=== PATIENT | female | born 1975 | race Caucasian/White ===

== ENCOUNTER 2019-06-26 08:43 | Outpatient (REF) | payer BC, SELFPAY ==
[2019-06-26 21:16] LABS: ALT 20 U/L (14-59); AST 13 U/L (15-37); Alkaline Phosphatase 54 U/L (46-116); BUN 14 mg/dL (7-18); Bilirubin, Total 0.5 mg/dL (0.2-1.0); CREATININE 0.83 mg/dL (0.55-1.02); Calculated LDL 150 mg/dL; Chloride 102 mmol/L (98-107); Cholesterol 219 mg/dL (50-200); Glucose 98 mg/dL (70-100); HDL Cholesterol 54 mg/dL (40-60); Sodium 138 mmol/L (136-145); Triglyceride 77 mg/dL (30-150)
[2019-06-26 21:44] LABS: Hemoglobin A1C 5.6 % (4.5-6.2)
== END 2019-06-26 09:03 ==
LOC: NCHCN 08:43
PROVIDERS: PCP Family Medicine; Visit Provider Family Medicine
DX: Z00.00 Encounter for general adult medical examination without abnormal findings (principal); R73.09 Other abnormal glucose; E66.3 Overweight
CPT/HCPCS: 80053; 80061; 83036

== ENCOUNTER 2021-01-07 01:14 | Emergency (ER) | payer BC, SELFPAY ==
[2021-01-07 01:19] VITALS: BP 171/101; PULSE 92; RESP 18; TEMP 36.7; O2SAT 100
[2021-01-07 01:29] VITALS: BP 159/101
--- NOTE | 2021-01-07 01:41 | W.ED.GENAD ---
Discharge Plan Disposition Patient Disposition: HOME Condition: Stable Discharge Details Clinical Impression: Abnormal uterine bleeding Primary Care Provider: Nahomy Busby ED Provider: Curt Martinez Home Meds and New Rx's Prescriptions: No Action No Known Home Meds RF: 0 Discharge Instructions Additional Instructions: follow up with your women's wellness provider this week you can take 600mg ibuprofen every 6 hours for pain as needed if significant increase in pain, bleeding, or you feeling short of breath or chest discomfort return to the emergency department Medical Decision Making 45 yo female who denies chronic medical problems comes in with frequent vaginal bleeding since yesterday at 2am. She did have clots initially but that has resolved and had lower abdominal pain as well but that has improved and she has no tenderness on abdominal exam now. No fevers or vomit. Denies chance of preganncy as she is in same sex relationship. She is hemodynamically stable on exam. I suspect fibroids vs dysfunctional uterine bleeding given well appearance, unfortunately we do not have u/s here tonight but at present do not feel she requires emergent imaging. Will obtain cbc and also perform speculum exam. pts cbc reassuring, no anemia and on speculum exam has small amount of blood coming from os, no clots or abnormalities noted of vaginal canal. She remains stable and given stable vitals with reassuring exam and cbc feel she can be d/c'd with f/u with her obgyn provider which she says is at [facility] and wants to continue to see them. Advised if worsening pain or bleeding to return to the emergency department. Continues to have no abdominal pain so doubt entities such as ovarian torsion Differential Diagnosis Differential Diagnosis: dysfunctional uterine bleeding, endometriosis, fibroids, Lab Data Lab results reviewed: Yes I reviewed the patient's lab results. HPI General Mode of arrival: ambulatory. Date/Time Provider Initiated Documentation: 01/07/21 01:15. Limitations to Documentation: no limitations. Information obtained by: patient. History of Present Illness 45 year old F presents to the emergency department with the chief complaint of vaginal bleeding, described as moderate, and it has been constant. No relieving factors improve symptom(s), No exacerbating factors reported . 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 Review of Systems All systems reviewed & are unremarkable except as noted in HPI and below Constitutional Constitutional: Denies chills, Denies fever(s) and Denies weakness Cardiovascular Cardiovascular: Denies chest pain and Denies dyspnea Respiratory Respiratory: Denies cough and Denies dyspnea Gastrointestinal Gastrointestinal: Denies nausea and Denies vomiting Genitourinary Genitourinary: Denies dysuria Neurologic Neurologic: Denies weakness PFSH Social History Smoking/Tobacco Use Status: Never Smoking risk assessment performed?: Yes Alcohol Intake: current Alcohol Intake frequency: a few times a week Alcohol type: beer, wine and hard liquor Drug use: Never Substance use type: does not use Do you feel safe at home: Yes Do you feel safe in your relationship?: Yes Exam Const General: no acute distress Orientation: alert HENMT Head: normal to inspection Ears: external ears normal General nose exam: external nose normal Mouth: moist mucous membranes Eyes General: appearance normal, both eyes and all related structures Neck Neck: normal visual inspection Resp Effort & Inspection: normal respiratory effort and able to speak in complete sentences Cardio Rate: regular rate GI Palpation: soft and nontender Skin General skin exam: no rashes or lesions noted Neuro General: patient alert and patient oriented x3 Extrem General: normal to inspection Psych Mental Status: mental status grossly normal Course Vital Signs Vital signs: Vital Signs Temperature 36.7 C 01/07/21 01:19 Pulse 92 H 01/07/21 01:19 Respiratory Rate 18 01/07/21 01:19 Blood Pressure 171/101 H 01/07/21 01:19 Pulse Oximetry 100 01/07/21 01:19 Temperature 36.7 C 01/07/21 01:19 Temperature Source Skin 01/07/21 01:19 Pulse 92 H 01/07/21 01:19 Respiratory Rate 18 01/07/21 01:19 Respiratory Effort Non-Labored 01/07/21 01:24 Blood Pressure 159/101 H 01/07/21 01:29 Pulse Oximetry 100 01/07/21 01:19 Pain Level 7 01/07/21 01:19
[2021-01-07 01:47] LABS: Abs Immature Grans 0.01 10^3/uL (0.0-0.06); Absolute Basophil Count 0.04 10^3/uL (0.0-0.2); Absolute Eosinophil Count 0.17 10^3/uL (0.0-0.7); Absolute Monocyte Count 0.43 10^3/uL (0.1-0.8); Absolute Neutrophil Count 3.73 10^3/uL (1.2-6.7); Basophils % 0.7; Eosinophils % 2.9; HCT 38.8 % (36.0-46.0); HGB 12.5 g/dL (11.2-15.7); Immature Grans % 0.2; Lymphocytes % 25.5; MCH 29.6 pg (27.0-33.0); MCHC 32.2 % (32.0-36.0); MCV 91.7 fL (80-95); Monocytes % 7.3; Neutrophils % 63.4; Nucleated RBC 0 %; Platelet Count 247 10^3/uL (130-400); RBC 4.23 10^6/uL (3.93-5.22); RDW-SD 43.4 fL; WBC 5.88 10^3/uL (4.4-10.8)
[2021-01-07 02:02] LABS: PTT Activated 23.9 sec (21.0-27.5); Prothrombin Time 9.8 sec (9.3-11.0)
[2021-01-07 02:21] LABS: HCG Qual (Serum) Negative
[2021-01-07 02:26] VITALS: BP 125/79; PULSE 73; RESP 16; O2SAT 100
== END 2021-01-07 02:30 | disposition home or self-care (01) ==
PROVIDERS: Emergency Provider Emergency Medicine; PCP Family Medicine
DX: N93.8 Other specified abnormal uterine and vaginal bleeding (principal)
CPT/HCPCS: 36415; 81025; 86850; 86900; 86901; 99284; 84703; 85025; 85610; 85730

== ENCOUNTER 2021-01-26 09:39 | Outpatient (REF) | payer BC, SELFPAY ==
--- NOTE | 2021-01-26 08:45 | ENDOMET_PTH ---
PATIENT: Magda Sellers LOC: [facility] U#:[id number] AGE/SX: 45/F ROOM: RE01/26/[address]: Martha Pérez DO : 1975 BED: DIS: 01/26/2021 SPEC #: [id number] RECD: 01/26/21 12:25 STATUS: FELIX REQ #: [id number] DEWAYNE: 01/26/21 08:[address]: Martha Pérez DEPT: Surgical Specimen RECD BY: Ameena Hamilton ENTERED: 01/26/21 12:26 SP TYPE: Endomet OTHR DR: Nahomy Busby Tissues: 1 - ENDOMETRIUM BX/JORDIN Procedures: GROSS AND MICRO LEVEL 4 Comments: [id number]
== END 2021-01-26 09:40 | disposition home or self-care (01) ==
LOC: LBN 09:39
PROVIDERS: PCP Family Medicine; Visit Provider Obstetrics & Gynecology
DX: N85.01 Benign endometrial hyperplasia (principal); N93.9 Abnormal uterine and vaginal bleeding, unspecified
CPT/HCPCS: 88305

== ENCOUNTER 2022-08-03 09:45 | Outpatient (REF) | payer BC, SELFPAY ==
--- NOTE | 2022-08-03 09:15 | ENDOMET_PTH ---
PATIENT: Magda Sellers LOC: [facility] U#:[id number] AGE/SX: 46/F ROOM: RE08/03/[address]: Martha Pérez DO : 1975 BED: DIS: 08/03/2022 SPEC #: [id number] RECD: 08/03/22 12:35 STATUS: SOUFederico REQ #: [id number] DEWAYNE: 08/03/22 09:[address]: Martha Pérez DEPT: Surgical Specimen RECD BY: Ameena Hamilton ENTERED: 08/03/22 12:35 SP TYPE: Endomet OTHR DR: Nahomy Busby Tissues: 1 - ENDOMETRIUM BX/[place] Procedures: GROSS AND MICRO LEVEL 4 Comments: [id number]
--- OUTSIDE RECORDS SUMMARY | 2022-08-03 09:53 | XMS_ITS | Encounter Summary ---
:[address] [facility] Address [address] [place] [address] Care Team Providers Name Role Phone Salty Busby MD Primary Care Provider [phone] Encounter Details Date Type Department Care Team Description 07/20/2021 Lab Requisition [facility] Outr Resulting Lab, Pathology & Laboratory Provider [facility] [address] [id number] Social History Tobacco Use Types Packs/Day Years Used Date Never Assessed Sex Assigned at Date Recorded Not on file documented as of this encounter Plan of Treatment Not on filedocumented as of this encounter Procedures Procedure Name Priority Date/Time Associated Comments Diagnosis QUANTIFERON MITOGEN Today 07/19/2021 15:59 (PERFORMABLE) EDT QUANTIFERON TB2 Today 07/19/2021 15:59 (PERFORMABLE) EDT QUANTIFERON TB1 Today 07/19/2021 15:59 (PERFORMABLE) EDT QUANTIFERON NIL Today 07/19/2021 15:59 (PERFORMABLE) EDT QUANTIFERON Today 07/19/2021 15:59 Results for this INTERPRETATION EDT procedure are in (PERFORMABLE) the results section. QUANTIFERON TB GOLD Routine 07/19/2021 15:59 Resu lts for this PLUS EDT procedure are i n the results section. documented in this encounter Results QUANTIFERON INTERPRETATION (PERFORMABLE) (07/19/2021 15:59 EDT) Quantiferon NegativeComment: No Negative [facility] Interpretation interferon-gamma [facility] response to M. SERVICES tuberculosis antigens was detected. ??Infection with M. tuberculosis is unlikely. A single negative result does not exclude infection with M. tuberculosis. ??In patients at high risk for M. tuberculosis infection, a second test should be considered. TB1 Ag minus Nil 0.00 IU/ml [facility] TB2 Ag minus Nil 0.00 IU/mL [facility] Specimen Blood - Venous blood (substance) Narrative [facility] - 07/21/2021 13:34 EDT Results were obtained with the [employer] QuantiFERON-TB Gold Plus CLIA. New platform in use 07/05/2021 Performing Organization Address City/State/ZIP Code Phon e Number [facility] [address] [place] [address] SERVICES QUANTIFERON MITOGEN (PERFORMABLE) (07/19/2021 15:59 EDT) Specimen Blood - Venous blood (substance) Performing Organization Address City/State/ZIP Code Phon e Number [facility] [address] [place] [address] SERVICES QUANTIFERON TB2 (PERFORMABLE) (07/19/2021 15:59 EDT) Specimen Blood - Venous blood (substance) Performing Organization Address City/State/ZIP Code Phon e Number [facility] [address] [place] [address] SERVICES QUANTIFERON TB1 (PERFORMABLE) (07/19/2021 15:59 EDT) Specimen Blood - Venous blood (substance) Performing Organization Address City/State/ZIP Code Phon e Number [facility] [address] [place] [address] SERVICES QUANTIFERON NIL (PERFORMABLE) (07/19/2021 15:59 EDT) Specimen Blood - Venous blood (substance) Performing Organization Address City/[facility]/ZIP Code Phon e Number [facility] [address] [place] [address] SERVICES documented in this encounter Visit Diagnoses Not on filedocumented in this encounter Care Teams Cuprous Chloride Operator Relationship Specialty Start Date End Date Salty Busby MD PCP - General 01/26/21 4 [facility] [address] [place] [address] documented as of this encounter
--- OUTSIDE RECORDS SUMMARY | 2022-08-03 09:53 | XMS_ITS | Encounter Summary ---
:1975 Author Organization [facility] Address [address] [place] [address] Care Team Providers Name Role Phone Unavailable Primary Care Provider Unavailable Encounter Details Date Type Department Care Team Description 06/26/2019 Hospital Encounter [facility] - Unknown, Jana kaiser [facility] [phone] [place] [address] (Work) [place] [address] Social History Tobacco Use Types Packs/Day Years Used Date Never Assessed Sex Assigned at Date Recorded Not on file documented as of this encounter Discharge Disposition Disposition Code Departure Means Destination Home or Self Snf documented in this encounter Plan of Treatment Not on filedocumented as of this encounter Visit Diagnoses Not on filedocumented in this encounter
--- OUTSIDE RECORDS SUMMARY | 2022-08-03 09:53 | XMS_ITS | Encounter Summary ---
:1975 Author Organization [facility] Address [address] [place] [address] Care Team Providers Name Role Phone Unavailable Primary Care Provider Unavailable Encounter Details Date Type Department Care Team Description 12/10/2016 Results Only [facility] CNM [phone] [address] [facility] [place] [address] (Wo rk) Social History Tobacco Use Types Packs/Day Years Used Date Never Assessed Sex Assigned at Date Recorded Not on file documented as of this encounter Plan of Treatment Not on filedocumented as of this encounter Procedures Procedure Name Priority Date/Time Associated Diagnosis Comme nts PAP TEST- RESULT Routine 12/10/2016 0:00 EST Resu lts for this ONLY procedure are i n the results section. documented in this encounter Results PAP TEST- RESULT ONLY (12/10/2016 0:00 EST) Pathology Report: CYTOPATHOLOGY REPORT [facility] Reports generated via electronic interface contain jewel ginal data; SERVICES however they are lacking the format of the original re port. Caution should be taken when reading/interpreting unfo rmatted reports. Name: ? SARA ASIF ? Accession #: ? [id number] ? : ? 1975 (Age: 40 ) ??F ?Collect Date: ? 12/10/2016 ? Location: ? [facility] ? Receive Date: ? 12/12/19 17 ? Provider: SIERRA HALEY CNM Copy to: ? Final Report SPECIMEN ADEQUACY ? Satisfactory for Evaluation - transformation zone component present GENERAL CATEGORIZATION ? Negative for Intraepithelial Lesion or Malignan cy INTERPRETATION ? Shift in nicolasa present suggestive of bacterial vaginosis. Hormonal/Contraceptive status: None Other: It Program Auditor Clinical/Treatment Hx - None Specimen/Source: ??Pap Test, Cervix, ThinPrep Imaging System with manual evaluation Document reviewed and electronically signed by: ? WAYLON Wick(ASCP) ? Report ??Date: 12/17/2016 09:12 HPV with Pap Test ? Date Ordered: ? 12/17/2016 ? Status: ?? Signed Out ?Date Complete: ? 12/18/2016 ? By: ??Sy stem Interface ? Date Reported: ? 12/18/2016 ? Interpretation RESULT: Negative for HPV. No E6 or E7 mRNA is detected from HPV types 16,18,31,3 3,35, 39,45,51,52,56,58,59,66, and 68 by emergency technician media wilman amplification. Comments Document reviewed and electronically signed by: ? System Interface ? Report date: 12/18/2016 By the signature above, the attending physician certif ies that he/she has personally conducted a gross and/or microscopic examin ation of the described specimens and rendered or confirmed the above diagnosi s. End of Report Specimen Performing Organization Address City/State/ZIP Code Phon e Number [facility] [address] [place] [address] SERVICES documented in this encounter Visit Diagnoses Not on filedocumented in this encounter
--- OUTSIDE RECORDS SUMMARY | 2022-08-03 09:53 | XMS_ITS | Encounter Summary ---
:1975 Author Organization [facility] Address [address] [place] [address] Care Team Providers Name Role Phone Salty Busby MD Primary Care Provider [phone] Encounter Details Date Type Department Care Team Description 01/26/2021 Lab Requisition [facility] Martha Pérez Encounter for other Pathology & [address] general examination Laboratory Medicine [facility] [phone] [address] [facility] [phone] [place] [address] (Work) [phone] Social History Tobacco Use Types Packs/Day Years Used Date Never Assessed Sex Assigned at Date Recorded Not on file documented as of this encounter Plan of Treatment Not on filedocumented as of this encounter Procedures Procedure Name Priority Date/Time Associated Diagnosis Comme nts SURGICAL PATHOLOGY Today 01/26/2021 8:45 EDT Encounter for o ther Results for this general examination procedur e are in the results section. documented in this encounter Results SURGICAL PATHOLOGY (01/26/2021 8:45 EDT) Final Diagnosis A. ENDOMETRIUM, BIOPSY: [facility] - Secretory endometrium with focal breakdown. [facility] Attestation There was significant [facility] Electr onically resident/fellow CENTER signed by Denise gonzalez, involvement in the LABORATORY Sherly Bennett MD on diagnostic evaluation SERVICES 02/01/20 21 at 1530 of this case. By the signature below, the attending physician certifies that they have personally conducted a gross and/or microscopic examination of the described specimens and rendered or confirmed the above diagnosis. Clinical History Abnormal uterine [facility] bleeding [facility] Gross Description A. [facility] Received in formalin pedro d with proper patient identification (initials O, B) and endometrial bx is an aggregate of ball-cuba tissue, 1.2 x 1.0 x 0.7 cm. Entirely submitted in A1-A2. [facility] ZULY STEEL(ASCP) 01/26/2021 16:37 SER VICES Resident/Fellow: Sarah Spaulding [facility] MELISSA Kulkarni MD [facility] Performing Lab [facility] Scanned Images [facility] Specimen Tissue - Entire endometrium (body struct ure) Performing Organization Address City/State/ZIP Code Phon e Number [facility] [address] [place] [address] SERVICES documented in this encounter Visit Diagnoses Diagnosis Encounter for other general examination documented in this encounter Care Teams Staging Technician Relationship Specialty Start Date End Date Salty Busby MD PCP - General 01/26/[address] [place] [address] [phone] documented as of this encounter
--- OUTSIDE RECORDS SUMMARY | 2022-08-03 09:53 | XMS_ITS | Clinical Summary ---
:1975 Author Organization [facility] Address [address] [place] [address] Care Team Providers Name Role Phone Salty Busby MD Primary Care Provider [phone] Social History Tobacco Use Types Packs/Day Years Used Date Never Assessed Sex Assigned at Date Recorded Not on file Plan of Treatment Health Maintenance Due Date Last Done Comments Hepatitis C Screen 1975 COVID-19 Vaccine (1) 1989 Insurance Payer Benefit Plan / Subscriber ID Effective Dates Phone Addre ss Type Group [place] [id number] 2018-Present [address] [place] [address] Magda Asif Personal/Family Self 1975 [address] ([address]) [place] [address] Magda Asif Personal/Family Self 1975 [address] [place] [address] Magda Asif Personal/Family Self 1975 [address] [place] [address] Magda Asif Personal/Family Self 1975 [address] ([address]) [place] [address] Care Teams Operations Research Engineer Relationship Specialty Start Date End Date Salty Busby MD PCP - General 01/26/21 [address] [place] [address]
== END 2022-08-03 09:46 | disposition home or self-care (01) ==
LOC: LBN 09:45
PROVIDERS: PCP Family Medicine; Visit Provider Obstetrics & Gynecology
DX: N93.9 Abnormal uterine and vaginal bleeding, unspecified (principal)
CPT/HCPCS: 88305

== ENCOUNTER 2022-08-27 03:20 | Outpatient (CLI) | payer BC, SELFPAY ==
[2022-08-27 07:14] LABS: Abs Immature Grans 0.02 10^3/uL (0.0-0.06); Absolute Basophil Count 0.06 10^3/uL (0.0-0.2); Absolute Eosinophil Count 0.25 10^3/uL (0.0-0.7); Absolute Lymphocyte Count 1.35 10^3/uL (1.2-3.4); Absolute Monocyte Count 0.44 10^3/uL (0.1-0.8); Absolute Neutrophil Count 2.71 10^3/uL (1.2-6.7); Basophils % 1.2; Eosinophils % 5.2; HCT 40.8 % (36.0-46.0); HGB 12.6 g/dL (11.2-15.7); Immature Grans % 0.4; MCH 28.3 pg (27.0-33.0); MCHC 30.9 % (32.0-36.0); MCV 92 fL (80-95); MPV 10.8 fL (8.0-11.0); Monocytes % 9.1; Neutrophils % 56.1; Platelet Count 312 10^3/uL (130-400); RBC 4.45 10^6/uL (3.93-5.22); RDW 17.6 % (11.7-14.6); RDW-SD 59.2 fL; WBC 4.83 10^3/uL (4.4-10.8)
== END 2022-08-27 03:21 | disposition home or self-care (01) ==
LOC: LBO 03:20
PROVIDERS: PCP Family Medicine; Visit Provider Obstetrics & Gynecology
DX: N93.8 Other specified abnormal uterine and vaginal bleeding (principal); D25.9 Leiomyoma of uterus, unspecified; Z01.818 Encounter for other preprocedural examination; Z01.812 Encounter for preprocedural laboratory examination
CPT/HCPCS: 36415; 86850; 86900; 86901; 85025

== ENCOUNTER 2022-08-29 06:01 | Observation (INO) | payer BC, SELFPAY ==
[2022-08-29] VITALS (19 sets, daily range): BP systolic 77–135; BP diastolic 41–90; PULSE 60–87; RESP 14–26; TEMP 36.3–36.8; O2SAT 92–100; BMI 28.5
[2022-08-29 06:20] LABS: Source Nasal/Nares
[2022-08-29] MEDS: Lactated Ringers 1,000 ML 125 ML IV ×2 (06:40→17:00)
[2022-08-29 06:54] LABS: COVID-19 PCR Negative (Negative)
--- NOTE | 2022-08-29 07:25 | W.ANESPRE ---
General Info Date of Service Date Performed: 08/29/22 Height: 5 ft 7 in Weight: 82.5 kg Body Mass Index (BMI): 28.5 Surgical Procedure: Operation Date: 08/29/22 07:40 Proposed Procedure Side Surgeon p Hysterectomy Vaginal Laparoscopic Assist w/Salpingectomy,Possible CESAR,Cysto Martha DO Beto Meds Allergies and Home Medications Allergies Allergy/AdvReac Type Severity Reaction Status Date / Time No Known Allergies Allergy Verified 08/29/22 06:15 Home Medication Medication Instructions Recorded cholecalciferol (vitamin D3) 10 10 mcg PO DAILY 01/11/21 mcg (400 unit) tablet multivitamin 1 tab PO DAILY 01/11/21 norethindrone acetate 5 mg tablet 5 mg PO BID #30 tabs 08/20/22 (Aygestin) Current Visit Medications: Current Medications Generic Name Dose Route Start Last Admin Trade Name Freq PRN Reason Stop Dose Admin Ringer's Solution 1,000 mls @ 125 mls/hr 08/29/22 06:00 08/29/22 06:40 IV 09/27/22 23:59 125 mls/hr INFUSION REYNOLD Administration Cefazolin Sodium/Dextrose 2 gm in 50 mls @ 100 mls/hr 08/29/22 06:00 Ancef Duplex IVPB 09/27/22 23:59 PREOP REYNOLD IV Miscellaneous Supplies 1 each 08/29/22 06:00 Iv Access IV 09/27/22 23:59 DIRECTED REYNOLD Sodium Chloride 0 ml 08/29/22 06:00 Normal Saline Flush 10 Ml Syr IV 09/27/22 23:59 PRN PRN Sodium Chloride 0 ml 08/29/22 06:00 Normal Saline 10 Ml Vial IJ 09/27/22 23:59 DIRECTED PRN Sterile Water 0 ml 08/29/22 06:00 Water,Injection,Sterile 10 Ml Vial IJ 09/27/22 23:59 DIRECTED PRN PFSH Active Problems Active Problems: Problem Status Onset Code Abnormal uterine bleeding N93.9 Migraine G43.909 Uterine fibroid D25.9 Anemia D64.9 Surgical History Surgical History H/O wrist surgery History of lipoma Exc. left shoulder Tobacco Smoking/Tobacco Use Status: Never Alcohol Alcohol Intake: current Alcohol intake frequency: a few times a week Alcohol type: beer, wine and hard liquor Substance Use Substance use: Never Substance use type: does not use Prental History History 0 Para Hx # Term Pregnancies Multiple births Hx # Pregnancies Ectopic pregnancies AB induced Hx Number of Living Children AB spontaneous Vital Signs and Lab Results Vital Signs Most Recent Vital Signs in EMR: Most Recent Vital Signs Temp Pulse Resp BP Pulse Ox 36.7 C 81 16 135/90 100 08/29/22 06:17 08/29/22 06:17 08/29/22 06:17 08/29/22 06:17 08/29/22 06:17 Point of Care Results Point of Care Results: POC- Test(urine) Negative 08/29/22 06:51 Lab Results Blood Type / Crossmatch: Patient ABO/Rh O Positive 08/27/22 Antibody Screen NEGATIVE 08/27/22 Complete Blood Count: White Blood Count 4.83 10^3/uL (4.4-10.8) 08/27/22 07:01 Red Blood Count 4.45 10^6/uL (3.93-5.22) 08/27/22 07:01 Hemoglobin 12.6 g/dL (11.2-15.7) 08/27/22 07:01 Hematocrit 40.8 % (36.0-46.0) 08/27/22 07:01 Platelet Count 312 10^3/uL (130-400) 08/27/22 07:01 Complete Metabolic Panel: No Data to Display Liver Function Panel: No Data to Display Coagulation Panel: No Data to Display Cardiac Panel: No Data to Display Arterial Blood Gas: No Data to Display Venous Blood Gas: No Data to Display Pancreas Panel: No Data to Display Thyroid Panel: No Data to Display Infectious Disease: Coronavirus (COVID-19)(PCR) Negative (Negative) 08/29/22 06:10 Coronavirus 2019 Source Nasal/Nares 08/29/22 06:10 Blood Cultures: No Data to Display Toxicology Panel: No Data to Display Panel: No Data to Display Anesthesia Assessment and Plan Anesthesia History Personal History: No History of Anesthesia Complications Family History: No Family History of Anesthesia Complications Exercise Tolerance Exercise Tolerance: Metabolic Equivalents>4 Pertinent Negatives Pertinent Negatives: No Symptoms of GERD, No Major Cardiovascular Symptoms or Complaints, No Major Pulmonary Symptoms or Complaints and No History of CVA/TIA Cardiac & Pulmonary Exam Cardiac Exam: Normal S1/S2 Heart Sounds Pulmonary Exam: Clear Bilateral Breath Sounds Implantable Cardiac Device Does patient have a Pacemaker or an ICD?: No Airway Exam Known Difficult Airway: No Mallampati Class: 2 Mouth Opening: Normal (> 3cm) Thyromental Distance: Greater than 3 cm Neck Range of Motion: Full ROM Neck Circumference: Normal Teeth Condition: Normal Dentition ASA Classification ASA Score: ASA 2 Emergency Case?: No NPO Status NPO Status: NPO Clears >2 hours, Solids >8 hours Status Status: Negative HCG Anesthesia Plan Resuscitation Status: Full Code Anesthesia Technique: General Anesthesia Airway Planned: Endotracheal Tube Pain Management: Intrathecal Analgesia Monitors Used: Standard Monitors
[2022-08-29] MEDS: ceFAZolin 2 GM/50 ML BAG IVPB (07:40)
--- NOTE | 2022-08-29 08:26 | UTER_PTH ---
PATIENT: Magda Sellers LOC: [facility] U#:[id number] AGE/SX: 46/F ROOM: OBS.306 RE08/29/[address]: Martha Pérez DO : 1975 BED: A DIS: 08/30/2022 SPEC #: [id number] RECD: 08/29/22 12:35 STATUS: SOUFederico REQ #: [id number] DEWAYNE: 08/29/22 08:[address]: Martha Pérez DEPT: Surgical Specimen RECD BY: Ameena Hamilton ENTERED: 08/29/22 12:36 SP TYPE: UTER OTHR DR: Nahomy Busby Tissues: 1 - FALLOPIAN TUBE (OTHER) 2 - FALLOPIAN TUBE (OTHER) 3 - UTERUS W OR W/O OVARIES(NOT TUMOR/PROLAPSE) Procedures: GROSS AND MICRO LEVEL 5 Comments: [id number]
[2022-08-29] MEDS: Bupivacaine 0.5% Pres-Free 30 ML VIAL (09:59)
--- NOTE | 2022-08-29 10:17 | W.PM.OP ---
Date of service: 08/29/22 Time of Service: 10:17 Operative Note Operative Note DATE OF PROCEDURE: 08/29/22 PRE-OP DIAGNOSIS: Abnormal uterine bleeding, symptomatic uterine fibroid POST-OP DIAGNOSIS: same PROCEDURE: Laparoscopically assisted vaginal hysterectomy, bilateral salpingectomy, cystoscopy SURGEON: Martha Pérez ASSISTING SURGEON: Dayana Velasquez ANESTHESIA TYPE: Local By Surgeon, General LMA/ETT and Spinal Refer to Anesthesia Record ESTIMATED BLOOD LOSS: 100 PATHOLOGY: other (1. Right fallopian tube 2. Left fallopian tube 3. Uterus and cervix) COMPLICATIONS: None Patient was transported to: PACU Patient's condition: stable Indications: Ongoing abnormal uterine bleeding, negative endometrial sampling, symptomatic uterine fibroid. Findings: Enlarged uterus at 10 cm, 5 cm right fundal uterine fibroid. Normal-appearing ovaries. Right fallopian tube with small white papillations at and near to the fimbriated end. No other intra-abdominal, or pelvic pathology noted. Normal bladder cystoscopy with no evidence of trauma. Normally functioning ureters. Procedure Description: After full informed consent has been obtained and appropriate preoperative testing was performed, patient was taken the operating suite with an IV running where she was placed in the seated position. She had spinal anesthesia administered for postoperative pain control. She was then placed in dorsal supine position and endotracheal intubation performed for the administration of general anesthesia with ease. At this point she was placed in the modified dorsolithotomy position in [facility] and exam under anesthesia performed. Uterus is bulky and globular but freely mobile. She was then prepped and draped in the usual sterile fashion. Crockett catheter was inserted for continuous bladder drainage and a weighted speculum placed in the posterior vaginal vault for identification of the cervix. Cervix was grasped with a single-tooth tenaculum and a ZUMI uterine manipulator placed for uterine manipulation throughout the procedure. Tenaculum and speculum were then removed and attention was turned to the abdomen. After infiltration of the umbilical area with half percent Marcaine a 10 mm vertical incision was made at the umbilicus. The anterior abdominal wall was elevated with towel clips and a varies needle inserted into the abdomen. Pneumoperitoneum created with a maximum pressure of 15 mmHg of CO2 gas. At this point a bladeless 12 mm sleeve and trocar were placed into the abdomen under direct visualization. The abdomen and pelvis were inspected and found to be free of trauma. At this point the right and left lower trocar sites were infiltrated with half percent Marcaine and small, 5 mm incisions were made. Under direct visualization a right and left lower quadrant trocar site were placed. At this point the uterus was elevated and the abdomen and pelvis inspected. There were noted to be small white papillary excrescences on the right fallopian tube. For this reason fallopian tube removal will be sent separately for pathology. Ovaries appeared normal, small and involuted bilaterally. There was no evidence of other intra-abdominal or pelvic pathology. Initially attention was turned to the right fallopian tube which was elevated and cautery transected and removed through the 12 mm trocar. Similar procedure was carried out on the left fallopian tube. At this point again attention was turned to the right side of the uterus where the utero-ovarian ligament was identified cautery transected and ligated. The right round ligament was cautery transected and ligated allowing opening of the broad ligament. The anterior leaf of the broad ligament was elevated and bladder flap created. The right uterine artery and vein were identified and cauterized on the right. Similar procedure was carried out on the left utero-ovarian ligament followed by left round ligament allowing access of the left broad ligament which completed the bladder flap. The uterine vessels on the left were also cauterized for additional hemostasis. At this point all pedicles were inspected and found that hemostatic and attention was then turned to the vaginal vault. Pneumoperitoneum released. Weighted speculum was placed in the posterior vaginal vault and Juan clamps were used to grasp the anterior and posterior lips of the cervix. It was a circumferential fashion with the Bovie cautery an incision was made at the cervical vaginal interface. The posterior cul-de-sac was grasped with a Cameron and entered sharply. A longbilled weighted speculum was then placed within and the right and left uterosacral cardinal ligaments were clamped transected and suture-ligated. With meticulous sharp dissection the anterior cul-de-sac was then entered. Remainder of the uterine pedicles were clamped, transected, and suture-ligated in a systematic fashion allowing delivery of the uterus through the vaginal vault. With the uterus and cervix removed the uterine pedicles were identified, visualized, and noted to be hemostatic. At this point the vaginal cuff was closed with 0 Vicryl suture in a running locked fashion in a horizontal plane. There is incorporation of uterosacral cardinal complex into the vaginal apex for additional support of the vaginal vault. At this point attention was returned to the abdomen where pneumoperitoneum recreated the abdomen was irrigated with copious amounts of normal saline. All pedicles inspected along with the vaginal cuff and hemostasis was noted. Patient received methylene blue at this point for visualization of ureteric jets. The fascial incision at the umbilicus was closed with 0 Vicryl suture in a simple interrupted fashion skin edges were reapproximated with 4-0 undyed Monocryl Steri-Strips and sterile bandages were placed. At this point bladder cystoscopy was performed. Bladder was found to be completely intact and atraumatic. Both ureteric orifice ease were noted to be vigorously jetting blue-tinged urine, ensuring ureteric patency. At this point the procedure was terminated. Crockett catheter was reinserted. Patient was returned to the dorsal supine position and awoke from anesthesia without difficulty. She was taken to the postanesthesia care unit in stable condition. Complications: None apparent EBL: Approximately 100 mL Pathology: 1. Right fallopian tube 2. Left fallopian tube 3. Uterus and cervix Findings: 10-week sized bulky globular uterus with an approximately 5 cm right fundal fibroid. Normal-appearing ovaries. Right fallopian tube with tiny papillary excrescences. No other intra-abdominal or pelvic pathology was noted. Appendix appears normal. Liver edge and gallbladder appear normal.
[2022-08-29] MEDS: ePHEDrine 25 MG/5 ML Syringe IVP (10:27)
--- NOTE | 2022-08-29 12:34 | W.ANESPOSTOP ---
Postoperative Evaluation Date, Time and Location Date Performed: 08/29/22 Time Performed: 11:03 Patient Location: PACU Vital Signs Most Recent Imported Vital Signs: Most Recent Vital Signs Temp Pulse Resp BP Pulse Ox 36.5 C 86 14 111/68 100 08/29/22 12:04 08/29/22 12:04 08/29/22 12:04 08/29/22 12:04 08/29/22 12:04 Pain Score Most Recent Pain Score: Most Recent Pain Score Pain Level 3 08/29/22 12:04 Assessment Mental Status: Awake (Alert & Oriented to Patient Baseline) Airway and Respiratory Function: Patent airway with normal (patient baseline) respiratory exam Cardiovascular Function: Hemodynamically Stable Hydration Status: Adequately Hydrated Nausea & Vomiting: No Nausea or Vomiting Pain: Pain is tolerable per patient Peripheral Nerve Block: Patient did not receive a nerve block Postoperative Comments:: Intrathecal narcotics for post op pain
--- NOTE | 2022-08-29 13:16 | DSU.FORM ---
1315 Report given to González in OB at this time. Pt to be transferred by this nurse to OB room to stay the night.
--- NOTE | 2022-08-29 14:19 | NUR.NOTE ---
1330- admitted to room 306 via bed from PACU.Nursing Note:
[2022-08-29] MEDS: Normal Saline Flush 10 ML SYR IV ×3 (15:56→22:32)
[2022-08-29] MEDS: Ketorolac 30 MG/ML VIAL 15 MG IVP ×2 (15:58→22:31)
--- NOTE | 2022-08-29 17:23 | W.PM.PROGNOT ---
Date of Service Date of service: 08/29/22 Time of Service: 17:23 Assessment and Plan Assessment and plan (1) Status post laparoscopic assisted vaginal hysterectomy: Status: Acute Assessment and plan: Postoperative day 0. Routine postoperative care. Subjective Subjective Interval history since last seen: Patient seen and examined this evening. Overall doing well. Postoperative day 0 status post laparoscopically assisted vaginal hysterectomy with bilateral salpingectomy. Surgical procedure discussed at length. Vital signs are stable. Urine output is adequate. Pain is well controlled. Will increase diet as tolerated. Ambulate as tolerated. Crockett catheter will will be removed when patient is ambulatory with stable vital signs. CBC is pending for the morning. Anticipate discharge home tomorrow. Objective Last Vital Signs Temp 97.9 F 08/29/22 15:58 Pulse 75 08/29/22 15:42 Resp 20 08/29/22 15:42 BP 109/68 08/29/22 15:42 Pulse Ox 98 08/29/22 13:30 Laboratory Results - last 24 hr 08/29/22 06:10 COVID-19 Source Nasal/Nares SARS-CoV-2 (PCR) Negative
[2022-08-29] MEDS: Docusate Sodium 100 MG CAP PO (19:58)
[2022-08-30] MEDS: Ketorolac 30 MG/ML VIAL 15 MG IVP (04:24)
[2022-08-30] MEDS: Normal Saline Flush 10 ML SYR IV (04:25)
[2022-08-30 04:34] VITALS: BP 108/66; PULSE 75; RESP 17; TEMP 36.7; O2SAT 97
--- NOTE | 2022-08-30 06:09 | NUR.NOTE ---
Nursing Note: Crockett out this am. SCD's off per pt request. Pt sitting up in bed, drinking well, passing flatus. Packing protruding to underwear leaching small amt of blood. Pt denies feeling pain.
[2022-08-30 07:07] LABS: Abs Immature Grans 0.04 10^3/uL (0.0-0.06); Absolute Basophil Count 0.01 10^3/uL (0.0-0.2); Absolute Eosinophil Count 0.02 10^3/uL (0.0-0.7); Absolute Lymphocyte Count 1.05 10^3/uL (1.2-3.4); Absolute Monocyte Count 0.66 10^3/uL (0.1-0.8); Basophils % 0.1; Eosinophils % 0.2; HCT 34.8 % (36.0-46.0); HGB 11.1 g/dL (11.2-15.7); Immature Grans % 0.5; Lymphocytes % 12.1; MCH 28.7 pg (27.0-33.0); MCHC 31.9 % (32.0-36.0); MCV 90 fL (80-95); MPV 10.8 fL (8.0-11.0); Monocytes % 7.6; Neutrophils % 79.5; Platelet Count 288 10^3/uL (130-400); RBC 3.87 10^6/uL (3.93-5.22); RDW 17.8 % (11.7-14.6); RDW-SD 59.4 fL; WBC 8.68 10^3/uL (4.4-10.8)
[2022-08-30 07:19] VITALS: BP 121/67; PULSE 83; RESP 12; TEMP 37.4; O2SAT 99
[2022-08-30] MEDS: Docusate Sodium 100 MG CAP PO (08:06)
--- NOTE | 2022-08-30 08:57 | W.PM.PROGNOT ---
Date of Service Date of service: 08/30/22 Time of Service: 08:57 Assessment and Plan Assessment and plan (1) Status post laparoscopic assisted vaginal hysterectomy: Status: Acute Assessment and plan: Patient is postoperative day #1 status post laparoscopically assisted vaginal hysterectomy with bilateral salpingectomy due to abnormal uterine bleeding and uterine fibroids. She has had an uncomplicated postoperative course thus far. She is ambulating, tolerating regular diet and oral pain medication with stable vital signs. She will be dispositioned to home today on oral pain medication including ibuprofen, Tylenol, Percocet as needed, Colace as needed. All of her questions were answered today Subjective Subjective Interval history since last seen: Patient seen and examined this morning. Doing well. Pain is well controlled. She is ambulating, tolerating a regular diet and oral pain medication with stable vital signs. Her postoperative hemoglobin is stable at 11.1. Her urine output is appropriate. Exam Narrative Exam Narrative: Alert oriented, no acute distress. Good pain control Neck Neck: normal visual inspection Resp Effort & Inspection: normal respiratory effort GI Inspection: normal to inspection, non-distended and incision (Clean dry intact) Skin General skin exam: no rashes or lesions noted Neuro General: patient alert and patient oriented x3 Extrem General: normal to inspection and no clubbing, cyanosis or edema Objective Last Vital Signs Temp 99.3 F 08/30/22 07:19 Pulse 83 08/30/22 07:19 Resp 12 08/30/22 07:19 BP 121/67 08/30/22 07:19 Pulse Ox 99 08/30/22 07:19 Laboratory Results - last 24 hr 08/29/22 08/30/22 20:11 06:46 WBC 8.68 RBC 3.87 L Hgb 11.1 L Hct 34.8 L MCV 90 MCH 28.7 MCHC 31.9 L RDW 17.8 H Plt Count 288 MPV 10.8 Immature Gran % 0.5 Neutrophils % 79.5 Lymphocytes % 12.1 Monocytes % 7.6 Eosinophils % 0.2 Basophils % 0.1 Nucleated RBC % 0.0 Absolute Neutrophils 6.90 H Absolute Lymphocytes 1.05 L Absolute Monocytes 0.66 Absolute Eosinophils 0.02 Absolute Basophils 0.01 COVID-19 Source Cancelled SARS-CoV-2 (PCR) Cancelled
--- NOTE | 2022-08-30 09:05 | DSE_ITS ---
Date of service: 08/30/22 Time of Service: 09:06 DS: Diagnosis Discharge Diagnosis (1) Status post laparoscopic assisted vaginal hysterectomy: Status: Acute Asessment and Plan: Patient is postoperative day #1 status post laparoscopically assisted vaginal hysterectomy and bilateral salpingectomy. Uncomplicated postoperative course and uncomplicated intraoperative procedure. Discharged home postoperative day #1 ambulating, tolerating regular diet and oral pain medication with stable vital signs. Her follow-up will be in the office in 2 and 6 weeks. Instructions were given as far as pelvic rest, and no heavy lifting for 6 weeks. All questions were answered. Discharge Plan Disposition Patient Disposition: HOME Condition: Good Discharge Details Reason For Visit: [facility] Admit Date/Time: 08/29/22 06:01 Admit Provider: Martha Pérez Attending Provider: Martha Pérez Primary Care Provider: Nahomy Busby [facility] Course Hospital Course: On 08/29/2022 patient underwent laparoscopically assisted vaginal hysterectomy with bilateral salpingectomy for abnormal uterine bleeding and uterine fibroid. She had an uncomplicated surgical procedure and uncomplicated postoperative course. She was discharged home postoperative day #1 ambulating, tolerating regular diet and oral pain medication with stable vital signs. She will be seen in the office again in 2 weeks and 6 weeks all of her instructions were given. Pathology is pending. Discharge hemoglobin was 11.1. Home Meds and New Rx's Prescriptions: New ibuprofen 800 mg tablet 800 mg PO Q8H PRNQty: 60 1RF oxycodone-acetaminophen [Percocet] 5-325 mg tablet 1 tab PO Q8H PRNQty: 10 0RF docusate sodium [Colace] 100 mg capsule 100 mg PO BID Qty: 30 1RF No Action multivitamin Tablet 1 tab PO DAILY cholecalciferol (vitamin D3) 10 mcg (400 unit) tablet 10 mcg PO DAILY norethindrone acetate [Aygestin] 5 mg tablet 5 mg PO BID Qty: 30 0RF Discharge Instructions Stand Alone Forms: DSU Post Superintendent Pressure SurgeryW/Incision Activity:: Pelvic rest Equipment/Supplies:: No Equipment Needed Diet:: As Tolerated Discharge Orders Discharge Orders: Discharge Order (Routine); Ordered 08/30/22 Ordered By: Martha Pérez DS: Summary Time Spent with Patient providing and/or coordinating discharge services: Less than 30 minutes Status at Discharge Functional status at discharge: independent ambulation Overall status at discharge: patient is progressing back to baseline Mental Status: mental status grossly normal Speech and Movement: speech and movement normal Mood: congruent mood Affect: normal affect Exam Narrative Exam Narrative: See physical exam from progress note dated 08/30/2022 Psych Mental Status: mental status grossly normal Speech and Movement: speech and movement normal Mood: congruent mood Affect: normal affect DS: Data Vitals/I&O Vitals and I&O: Vital Signs Temperature 99.3 F 08/30/22 07:19 Temperature Source Oral 08/30/22 07:19 Pulse 83 08/30/22 07:19 Pulse Rhythm Regular 08/30/22 07:28 Respiratory Rate 12 08/30/22 07:19 Respiratory Effort 08/30/22 07:28 Respiratory Depth Normal 08/30/22 07:28 Respiratory Pattern Normal 08/30/22 07:28 Blood Pressure 121/67 08/30/22 07:19 Pulse Oximetry 99 08/30/22 07:19 Respiratory End-tidal CO2 31 08/29/22 10:50 Oxygen Delivery Method Room Air 08/30/22 07:19 Oxygen Flow Rate 0 08/30/22 07:19 Pain Level 0 08/30/22 07:19 Intake & Output 08/29/22 08/29/22 08/30/22 11:59 23:59 11:59 Intake Total 1100 / 3698.75 2598.75 / 3698.75 700 / 700 Output Total 300 / 1900 1600 / 1900 700 / 700 Balance 800 / 1798.75 998.75 / 1798.75 0 / 0 Weight 181 lb 14.102 oz Intake: IV 850 / 968.75 118.75 / 968.75 Oral 250 / 2730 2480 / 2730 700 / 700 Output: Urine 200 / 1800 1600 / 1800 700 / 700 Estimated Blood Loss 100 / 100 Other: Urine Color Green Green Green Urine Appearance Clear Clear Clear Comment CHING IN PLACE AND DRAINING Ching out Emesis Description None None Voiding Methods Toilet Data Completed and Pending Labs on day of discharge: Labs from last 24 hours 08/30/22 08/29/22 06:46 20:11 WBC 8.68 RBC 3.87 L Hgb 11.1 L Hct 34.8 L MCV 90 MCH 28.7 MCHC 31.9 L RDW 17.8 H Plt Count 288 MPV 10.8 Immature Gran % 0.5 Neutrophils % 79.5 Lymphocytes % 12.1 Monocytes % 7.6 Eosinophils % 0.2 Basophils % 0.1 Nucleated RBC % 0.0 Absolute Neutrophils 6.90 H Absolute Lymphocytes 1.05 L Absolute Monocytes 0.66 Absolute Eosinophils 0.02 Absolute Basophils 0.01 COVID-19 Source Cancelled SARS-CoV-2 (PCR) Cancelled PFSH All Active Problems Status post laparoscopic assisted vaginal hysterectomy (Acute) status post laparoscopically assisted vaginal hysterectomy with bilateral salpingectomy due to abnormal uterine bleeding and enlarged fibroid uterus. 08/30/2022. Abnormal uterine bleeding (Acute) Migraine (Chronic) Uterine fibroid (Acute) Anemia (Chronic) Surgical History (Updated 08/30/22 @ 08:59 by Martha Pérez DO) H/O wrist surgery History of lipoma Exc. 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
[2022-08-30] MEDS: Ibuprofen 600 MG TAB PO (09:06)
== END 2022-08-30 09:20 | disposition home or self-care (01) | DRG 743 ==
LOC: PDS 10:03 → OBS 13:49 → PDS 01-11 14:26 → OBS 01-11 14:26
PROVIDERS: Admitting Provider Obstetrics & Gynecology; PCP Family Medicine; Visit Provider Obstetrics & Gynecology
PROC: 0UT9FZZ Resection of Uterus, Via Natural or Artificial Opening With Percutaneous Endoscopic Assistance (ICD-10-PCS; CPT 58554; principal; 2022-08-29 07:30)
DX: D25.9 Leiomyoma of uterus, unspecified (principal); N93.8 Other specified abnormal uterine and vaginal bleeding; D64.9 Anemia, unspecified; G43.909 Migraine, unspecified, not intractable, without status migrainosus
CPT/HCPCS: 58554; 52000; 36415; 87635; 96361; 96365; 96375; 96376; 85025; 88304; 88307; G0378; J0690; J1100; J1885; J2250; J2405; J2704; J3010

== ENCOUNTER 2023-05-20 03:20 | Outpatient (CLI) | payer BC, SELFPAY ==
--- NOTE | 2023-05-20 15:45 | DI.MAMMO_ITS ---
Exam(s) MAMMO SCREENING EXAM: MAMMO SCREENING CLINICAL HISTORY: screening. TECHNIQUE: Bilateral full field digital CC and MLO mammographic images were obtained with 3D tomosyn thesis and utilizing computer aided detection (CAD). COMPARISON: Prior outside baseline mammogram May 2019 mammograms were reviewed. FINDINGS: There has been no significant change in the appearance and distribution of the fibroglandular tissue. There are no new spiculated masses nor malignant appearing microcalcification groups. There is no significant architectural distortion nor skin thickening-retraction. IMPRESSION: No radiographic evidence of malignancy. BI-RADS Category 1 - Negative Breast Density - Category B - Scattered areas of fibroglandular density Breast density Category C or D implies that the patient has dense breast tissue. Dense breast tissue can make it harder to find cancer on a mammogram. Dense breast tissue is also associated with an incr eased risk of breast cancer. This information about the result of the mammogram report was provided to the patient to raise their awareness. Use this report when you speak with the patient about their risks for breast cancer, which includes their family history. At that time, you may recommend additional screening tests (Ultrasoun d or MRI) as these tests may add significant information. A negative radiographic report should not delay biopsy if a dominant or clinically suspicious mass is present. Up to ten percent of cancers are not identified on mammography. A negative report may reinforce clinical impression. Adenosis and dense breasts may obscure an underlying neoplasm. False positive reports average 6 to 10%. Patient will receive a letter notifying them of these results.
== END 2023-05-20 03:40 ==
LOC: DI 03:20
PROVIDERS: PCP Family Medicine; Visit Provider Obstetrics & Gynecology
DX: Z12.31 Encounter for screening mammogram for malignant neoplasm of breast (principal)
CPT/HCPCS: 77063; 77067

== ENCOUNTER 2024-02-14 09:06 | Outpatient (REF) | payer BC, SELFPAY ==
[2024-02-14 15:41] LABS: HCT 44.4 % (36.0-46.0); HGB 14.4 g/dL (11.2-15.7); MCH 29.8 pg (27.0-33.0); MCHC 32.4 % (32.0-36.0); MCV 92 fL (80-95); MPV 11.9 fL (8.0-11.0); Platelet Count 238 10^3/uL (130-400); RBC 4.83 10^6/uL (3.93-5.22); RDW 12.9 % (11.7-14.6); RDW-SD 43.1 fL; WBC 5.44 10^3/uL (4.4-10.8)
[2024-02-14 16:11] LABS: Hemoglobin A1C 5.8 % (<5.7)
[2024-02-14 16:18] LABS: Vitamin D 25 Total 39.6 ng/mL (30-100)
[2024-02-14 16:29] LABS: BUN 15 mg/dL (7-18); Calcium 9.8 mg/dL (8.5-10.1); Calculated LDL 175 mg/dL (<100); Chloride 105 mmol/L (98-107); Cholesterol 259 mg/dL (<200); Estimated GFR 70.36 (mL/min/1.73m2); Ferritin 44 ng/mL (8-252); Glucose 102 mg/dL (74-106); HDL Cholesterol 63 mg/dL (40-60); Potassium 4.8 mmol/L (3.5-5.1); Sodium 139 mmol/L (136-145); Triglyceride 109 mg/dL (<150)
== END 2024-02-14 09:07 | disposition home or self-care (01) ==
LOC: NCHCN 09:06
PROVIDERS: PCP Family Medicine; Visit Provider Family Medicine
DX: E55.9 Vitamin D deficiency, unspecified (principal); D64.9 Anemia, unspecified; N18.9 Chronic kidney disease, unspecified; Z13.1 Encounter for screening for diabetes mellitus; Z13.220 Encounter for screening for lipoid disorders
CPT/HCPCS: 80048; 80061; 82306; 85027; 82728; 83036

== ENCOUNTER 2024-08-25 01:23 | Outpatient (CLI) | payer BC, SELFPAY ==
--- NOTE | 2024-08-25 07:45 | DI.MAMMO_ITS ---
Exam(s) MAMMO SCREENING EXAM: MAMMO SCREENING CLINICAL HISTORY: screening TECHNIQUE: Mammograms were interpreted according to the usual protocol including computer analysis w [employer] CAD system, tomosynthesis and C-view imaging. COMPARISON: 2018 and 2022 FINDINGS: The breasts are composed of scattered fibroglandular densities, Breast Density category B. No suspicious masses or suspicious microcalcifications are seen. No skin thickening or abnormal axillary lymph nodes are seen. There has been no significant change from prior exams. IMPRESSION: BI-RADS Category 1, Negative mammogram Yearly screening mammography is recommended. Breast Density - Category B, scattered fibroglandular densities. A negative radiographic report should not delay biopsy if a dominant or clinically suspicious mass is present. Up to ten percent of cancers are not identified on mammography. A negative report may reinforce clinical impression. Adenosis and dense breasts may obscure an underlying neoplasm. False positive reports average 6 to 10%. Patient will receive a letter notifying them of these results.
== END 2024-08-25 01:43 ==
LOC: DI 01:23
PROVIDERS: PCP Family Medicine; Visit Provider Obstetrics & Gynecology
DX: Z12.31 Encounter for screening mammogram for malignant neoplasm of breast (principal)
CPT/HCPCS: 77063; 77067

== ENCOUNTER 2024-11-06 06:46 | Day surgery (SDC) | payer BC, SELFPAY ==
--- NOTE | 2024-11-05 21:14 | COLE_ITS ---
Date of service: 11/06/24 Time of Service: 09:06 Colonoscopy Report Date of procedure: 11/06/24 Pre-op diagnosis general: Colorectal cancer screening Post-op diagnosis procedure note: other (Normal) Surgeon: Lisa Padilla Anesthesia Type: General:No Airway Estimated blood loss (mL): 0 Pathology: none sent Complications: None Disposition: same day Prep: Miralax/Dulcolax Retraction Time: 14 Procedure Description: After informed consent was obtained, explaining risks of the procedure, including but not limits to: bleeding, infections, complications of anesthesia, perforations (which may require antibiotics and /or surgery and stay in the hospital), and abdominal pain/cramping. The patient was taken to the procedure room and placed in a left decubitous position. Monitors were applied and a time out was done. The patients name, date of , procedure, allergies to medications and metal in their body was reviewed. The patient was then sedated. Once sedated and comfortable a rectal exam was done. External exam was normal. Internal exam revealed a normal sphincter tone and no palpable masses. The previously lubricated Olympus scope was then introduced (see RN notes for scope number) and retrofelexed. No internal hemorrhoids were identified. Internal hemorrhoidal tag x 1 the scope was then advanced to the cecum without difficulty. The TI and appendiceal orifice were identified. The scope was then slowly retracted over 14 minutes back into the rectum. Polyps: None. Diverticula: None. The mucosa is pink and healthy w/ a normal vascular pattern. The scope was removed, and the patient was woken up and taken back to Same day surgery in stable condition. The patient tolerated the procedure well and there were no immediate complications. Follow up: The patient should follow up in 10 years, unless they develop changes in bowel habits or other new gastrointestinal complaints. [place] Bowel Prep [place] Bowel Prep Right Colon: 3 Left Colon: 3 Transverse Colon: 3 Total Score: 9
--- NOTE | 2024-11-05 21:15 | PDOC.DSDIS_ITS ---
Date of service: 11/06/24 Discharge Plan Disposition Patient Disposition: Home Discharge Details Reason For Visit: Colon cancer screening Attending Provider: Lisa Padilla Primary Care Provider: Nahomy Busby Home Meds and New Rx's Prescriptions: Continued multivitamin Tablet 1 tab PO DAILY cholecalciferol (vitamin D3) 10 mcg (400 unit) tablet 10 mcg PO DAILY magnesium citrate 125 mg capsule 125 mg PO DAILY Saccharomyces boulardii [Daily Probiotic (S. boulardii)] 250 mg capsule 250 mg PO BID Discontinued bisacodyl [Dulcolax (bisacodyl)] 5 mg tablet,delayed release (DR/EC) 5 mg PO ONCE Qty: 4 0RF Rx Instructions: Take per colonoscopy instructions provided by ordering providers office polyethylene glycol 3350 17 gram/dose powder 17 g PO ONCE Qty: 238 0RF Rx Instructions: Take per colonoscopy instructions provided by ordering providers office Discharge Instructions Additional Instructions: DSU Colonoscopy Post- Op Instructions Instructions for Everyone who is given Anesthesia: For your safety, please do the following for the next twenty-four (24) hours: *Do Not operate a motor vehicle (car, truck, motorcycle, etc.) *Do Not drink alcoholic beverages or use any recreational drugs for the first 24 hours or while taking pain medications. The medications in your body may have a reaction that can be dangerous. *Do Not make any important decisions or sign any important papers. Findings: Normal Follow up: Repeat colonoscopy in 10 years time Of course, you should continue to have a yearly physical exam including a rectal exam. If you should ever notice any pain or difficulty having a bowel movement, blood in the stool, unexplained weight loss, or change in your bowel habits, please contact your health provider 1. No lifting over 20 pounds or strenuous activity for the first 24 hours after your procedure. After 24 hours there are no restrictions on your activity but you may feel fatigued for a few days. 2. After you arrive home you may have a light meal and return to your normal diet as you can tolerate it without feeling sick to your stomach. 3. You may have a bloated, gaseous feeling in your belly (abdomen) after a colonoscopy. Passing gas and belching will help. Walking or lying down on your left side with your knees flexed may relieve the discomfort. Call the office at [phone] (Office) or [phone] (Hospital) right away if you notice any of the following: a.Vomiting of blood or ?coffee ground stools?. b.Rectal bleeding 1Tbsp, blood clots or continuous bleeding. c.Severe belly (abdominal) pain. d.A hard distended belly (abdomen) and an inability to pass gas. 4. Please don?t expect to have a normal BM (bowel movement) for 2-3 days after your procedure. 5. If there are questions regarding the findings of your procedure, please contact your doctor 6. If you are unable to contact your doctor with a problem, contact the hospital at [phone]. 7. Continue all your regular medications unless directed otherwise. I understand the above instructions and have no questions. Signature of Patient or Adult Escort Name of Responsible Adult Escort Signature of Nurse Date/Time Activity:: See above Diet:: See above Discharge Orders Discharge Orders: Discharge Order (Routine); Ordered 11/05/24 Ordered By: Lisa Padilla DS: Diagnosis Discharge Diagnosis (1) Anemia: Status: Resolved (2) Status post laparoscopic assisted vaginal hysterectomy: (3) Screening for malignant neoplasm of colon performed: Status: Acute Asessment and Plan: The patient is seen and examined after their colonoscopy.? The patient has been able to pass gas.? They are not having abdominal pain.? They have been able to tolerate liquids and a snack.? They do not have any nausea or vomiting.? They are not having any chest pain or shortness of breath.??? They are not having any rectal bleeding. Their vital signs have been stable-see nursing notes. We discussed findings during their colonoscopy, and any biopsies that were done/polyps that were removed. The patient will be sent a letter with any biopsy results, and when to repeat the colonoscopy.-see discharge instructions. Patient was given explicit instructions to follow-up regarding colonoscopy-refer to discharge instructions.? We reviewed resumption of medications. Patient verbalized understanding and discharged in stable and satisfactory condition- See nursing notes.
[2024-11-06 07:11] VITALS: BP 138/92; PULSE 74; RESP 16; TEMP 36.4; O2SAT 100
[2024-11-06] MEDS: Lactated Ringers 1,000 ML 80 ML IV (07:30)
--- NOTE | 2024-11-06 08:31 | W.ANESPRE ---
General Info Date of Service Date Performed: 11/06/24 Height: 5 ft 7 in Weight: 85.4 kg Body Mass Index (BMI): 29.5 Surgical Procedure: Operation Date: 11/06/24 08:20 Proposed Procedure Side Surgeon jorge Padilla, Meds Allergies and Home Medications Allergies Allergy/AdvReac Type Severity Reaction Status Date / Time No Known Allergies Allergy Verified 11/03/24 15:15 Home Medication ?Medication ?Instructions ?Recorded cholecalciferol (vitamin D3) 10 10 mcg PO DAILY 01/11/21 mcg (400 unit) tablet multivitamin 1 tab PO DAILY 01/11/21 Saccharomyces boulardii 250 mg 250 mg PO BID 08/20/24 capsule (Daily Probiotic (S. boulardii)) magnesium citrate 125 mg capsule 125 mg PO DAILY 08/20/24 Current Visit Medications: Current Medications Generic Name Dose Route Start Last Admin Trade Name Freq PRN Reason Stop Dose Admin Hyoscyamine Sulfate 0.125 mg 11/06/24 08:40 Hyoscyamine 0.125 Mg Sl/Oral/Chew SL PRN PRN Ringer's Solution 1,000 mls @ 80 mls/hr 11/06/24 07:30 11/06/24 07:30 IV 12/06/24 07:29 80 mls/hr INFUSION REYNOLD Administration IV Miscellaneous Supplies 1 each 11/06/24 06:00 Iv Access IV 11/06/24 23:59 DIRECTED REYNOLD Ondansetron HCl 4 mg 11/06/24 08:40 Ondansetron 4 Mg/2 Ml Vial IVP 12/06/24 08:39 Q4H PRN PRN Nausea / Vomiting Sodium Chloride 0 ml 11/06/24 06:00 Normal Saline Flush 10 Ml Syr IV 11/06/24 23:59 PRN PRN Sodium Chloride 0 ml 11/06/24 06:00 Normal Saline 10 Ml Vial IJ 11/06/24 23:59 DIRECTED PRN Sterile Water 0 ml 11/06/24 06:00 Water,Injection,Sterile 10 Ml Vial IJ 11/06/24 23:59 DIRECTED PRN PFSH Active Problems Active Problems: Problem Status Onset Code Screening for malignant neoplasm of colon performed Acute Z12.11 Vitamin D deficiency Acute E55.9 Migraine Chronic G43.909 Medical History Medical History Overweight Surgical History Surgical History Status post laparoscopic assisted vaginal hysterectomy status post laparoscopically assisted vaginal hysterectomy with bilateral salpingectomy due to abnormal uterine bleeding and enlarged fibroid uterus. 08/30/2022. History of lipoma Exc. left shoulder H/O wrist surgery Tobacco Smoking/Tobacco Use Status: Never Alcohol Alcohol Intake: current Alcohol intake frequency: a few times a week Alcohol type: beer, wine and hard liquor Substance Use Substance use: Never Substance use type: does not use Prental History History 0 Para Hx # Term Pregnancies Multiple births Hx # Pregnancies Ectopic pregnancies AB induced Hx Number of Living Children AB spontaneous Vital Signs and Lab Results Vital Signs Most Recent Vital Signs in EMR: Most Recent Vital Signs Temp Pulse Resp BP Pulse Ox 36.4 C L 74 16 138/92 H 100 11/06/24 07:11 11/06/24 07:11 11/06/24 07:11 11/06/24 07:11 11/06/24 07:11 Lab Results Blood Type / Crossmatch: No Data to Display Complete Blood Count: No Data to Display Complete Metabolic Panel: No Data to Display Liver Function Panel: No Data to Display Coagulation Panel: No Data to Display Cardiac Panel: No Data to Display Arterial Blood Gas: No Data to Display Venous Blood Gas: No Data to Display Pancreas Panel: No Data to Display Thyroid Panel: No Data to Display Infectious Disease: No Data to Display Blood Cultures: No Data to Display Toxicology Panel: No Data to Display Panel: No Data to Display Anesthesia Assessment and Plan Anesthesia History Personal History: No History of Anesthesia Complications Family History: No Family History of Anesthesia Complications Exercise Tolerance Exercise Tolerance: Metabolic Equivalents>4 Pertinent Negatives Pertinent Negatives: No Symptoms of GERD Cardiac & Pulmonary Exam Cardiac Exam: Normal S1/S2 Heart Sounds Pulmonary Exam: Clear Bilateral Breath Sounds Implantable Cardiac Device Does patient have a Pacemaker or an ICD?: No Airway Exam Known Difficult Airway: No Mallampati Class: 2 Mouth Opening: Normal (> 3cm) Thyromental Distance: Greater than 3 cm Neck Range of Motion: Full ROM Neck Circumference: Normal Teeth Condition: Normal Dentition ASA Classification ASA Score: ASA 1 Emergency Case?: No NPO Status NPO Status: NPO Clears >2 hours, Solids >8 hours Status Status: History of Hysterectomy Anesthesia Plan Resuscitation Status: Full Code Anesthesia Technique: General Anesthesia Airway Planned: Natural Airway Monitors Used: Standard Monitors
[2024-11-06 08:33] VITALS: BMI 29.5
--- NOTE | 2024-11-06 09:06 | W.ANESPOSTOP ---
Postoperative Evaluation Date, Time and Location Date Performed: 11/06/24 Time Performed: 09:06 Patient Location: Day Surgery Unit Vital Signs Most Recent Imported Vital Signs: Most Recent Vital Signs Temp Pulse Resp BP Pulse Ox 36.4 C L 74 16 138/92 H 100 11/06/24 07:11 11/06/24 07:11 11/06/24 07:11 11/06/24 07:11 11/06/24 07:11 Pain Score Most Recent Pain Score: Most Recent Pain Score Pain Level 0 11/06/24 07:11 Assessment Mental Status: Awake (Alert & Oriented to Patient Baseline) Airway and Respiratory Function: Patent airway with normal (patient baseline) respiratory exam Cardiovascular Function: Hemodynamically Stable Hydration Status: Adequately Hydrated Nausea & Vomiting: No Nausea or Vomiting Pain: Pt. Denies Any Pain Peripheral Nerve Block: Patient did not receive a nerve block
[2024-11-06 09:09] VITALS: BP 113/72; PULSE 63; RESP 17; TEMP 36.2; O2SAT 100
[2024-11-06 09:30] VITALS: BP 116/67; PULSE 64; RESP 16; TEMP 36.1; O2SAT 99
== END 2024-11-06 09:40 | disposition home or self-care (01) ==
LOC: SUR 06:47
PROVIDERS: PCP Family Medicine; Visit Provider Surgery
PROC: 0DJD8ZZ Inspection of Lower Intestinal Tract, Via Natural or Artificial Opening Endoscopic (ICD-10-PCS; CPT 45378; principal; 2024-11-06 08:15)
DX: Z12.11 Encounter for screening for malignant neoplasm of colon
CPT/HCPCS: 45378; J2704

== ENCOUNTER → 2025-09-06 02:03 | Outpatient (CLI) | payer BC, SELFPAY ==
--- NOTE | 2025-09-06 07:45 | DI.MAMMO_ITS ---
Exam(s) MAMMO SCREENING EXAM: MAMMO SCREENING CLINICAL HISTORY: screening. TECHNIQUE: Bilateral full field digital CC and MLO mammographic images were obtained with 3D tomosynthesis and utilizing computer aided detection (CAD). COMPARISON: Prior mammograms were reviewed. FINDINGS: There has been no significant change in the appearance and distribution of the fibroglandular tissue. There are no new spiculated masses nor malignant appearing microcalcification groups. There is no significant architectural distortion nor skin thickening-retraction. IMPRESSION: No radiographic evidence of malignancy. BI-RADS Category 1 - Negative Breast Density - Category B - There are scattered areas of fibroglandular density. Breast density Category C or D implies that the patient has dense breast tissue. Dense breast tissue can make it harder to find cancer on a mammogram. Dense breast tissue is also associated with an increased risk of breast cancer. This information about the result of the mammogram report was provided to the patient to raise their awareness. Use this report when you speak with the patient about their risks for breast cancer, which includes their family history. At that time, you may recommend additional screening tests (Ultrasound or MRI) as these tests may add significant information. A negative radiographic report should not delay biopsy if a dominant or clinically suspicious mass is present. Up to ten percent of cancers are not identified on mammography. A negative report may reinforce clinical impression. Adenosis and dense breasts may obscure an underlying neoplasm. False positive reports average 6 to 10%. Patient will receive a letter notifying them of these results.
== END ==
LOC: DI 02:03
PROVIDERS: PCP Family Medicine; Visit Provider Obstetrics & Gynecology
DX: Z12.31 Encounter for screening mammogram for malignant neoplasm of breast (principal); R92.323 Mammographic fibroglandular density, bilateral breasts
CPT/HCPCS: 77063; 77067